=== PATIENT | female | born 1940 | race Caucasian/White ===

== ENCOUNTER 2018-11-23 22:03 | Emergency (ER) | payer MEDICARE ==
[2018-11-23] MEDS ORDERED: Acetaminophen 500 MG TAB ONE (22:40)
--- NOTE | 2018-11-23 23:06 | RAD ---
Exam:3 views left wrist HISTORY: Previous trauma. Previous internal fixation. COMPARISON: 07/18/2016 FINDINGS: Internal fixation hardware projects over the distal radius and ulna. There appears to be pe riarticular lucency involving the internal fixation plate at the level of the distal ulna. There is an incompletely healed distal ulnar fracture. Acute fracture is not appreciated. There is diffuse mil d bone demineralization. IMPRESSION: 1. No acute fracture. 2. 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 Perihardware lucency involving the internal fixation p late at the level of the distal ulna. Transcribed Date/Time: 11/23/2018 11:15 PM
--- NOTE | 2018-11-23 23:09 | RAD ---
Exam:4 views right knee HISTORY: Pain. Fall. COMPARISON: None FINDINGS: Joint spaces are preserved. No fracture. No malalignment. Small suprapatellar effusion. IMPRESSION: Small suprapatellar effusion. If there is concern for internal derangement, consider MRI. No fracture
--- NOTE | 2018-11-23 23:22 | CT ---
Exam: CT cervical spine without contrast HISTORY: Fall. Trauma. Pain. COMPARISON: None FINDINGS: No craniocervical dissociation. Appropriate alignment of the lateral masses of C1 and C2. Intact odon toid process Appropriate alignment of the facets. There is exaggeration of cervical lordosis which may be due to p atient position, muscle spasm, cervical collar or fusion changes at the C5-C6 disc space. There are bilateral transpedicular screws at C5 and C6 without perihardware lucency. There is a prosthesis at C 5-C6. Soft tissue neck structures: No mass, lymphadenopathy or hematoma. No prevertebral soft tissue swelli ng. Upper mediastinum and lung apices: Unremarkable Central spinal canal: Varying degrees of central canal stenosis and neural foraminal narrowing on the basis of degenerative change. Evaluation is limited by technique. There does appear to be at least [id number] neural foraminal narrowing at multiple levels. Vertebral bodies: Cervical spine vertebral body height is maintained. No fracture. IMPRESSION: 1. No fracture 2. Exaggeration of cervical lordosis which may be due to patient position, muscle spasm, cervical col lar or cervical fusion. Current study is not tailored to assess for ligamentous injury. Transcribed Date/Time: 11/23/2018 11:26 PM
--- NOTE | 2018-11-23 23:26 | CT ---
Exam: Head CT without contrast HISTORY: Fall. Trauma. Pain. COMPARISON: 07/17/2016 FINDINGS: Hemorrhage: No intraparenchymal hemorrhage or extra-axial hematoma. Brain parenchyma: Cortical reis-white matter differentiation is preserved. No mass effect or midline shift. Basilar cisterns are patent.Stable white matter hypodensities due to chronic small vessel ischemic change. Ventricular system: Ventricles and sulci are patent and symmetric. Calvarium: Intact. Sinuses and mastoid air cells: Evidence of previous sinonasal surgery. Adequate aeration of the sinus es and mastoid air cells. IMPRESSION: No intracranial post traumatic sequelae.
[2018-11-23 23:55] LABS: #Eosinphils 0.4 thou/uL (0.0-0.7); #Lymphocytes 1.6 thou/uL (1.20-3.40); #Monocytes 0.9 thou/uL (0.11-0.59); %Basophils 0.6 % (0.0-1.0); %Eosinophils 4.5 % (0.0-10.0); %Lymphocytes 20.1 % (21.0-51.0); %Monocytes 11.5 % (0.0-10.0); %Neutrophils 63.4 % (42.0-75.0); Hemoglobin 11.7 g/dL (12.0-16.0); Mean Corpuscular HGB CONC 33.8 g/dL (32.0-36.0); Mean Corpuscular Hemoglobin 32.1 pg (27.0-31.0); Mean Corpuscular Volume 95.1 fL (78.0-98.0); Mean Platelet Volume 7.2 fL (7.4-10.4); Platelet Count 188 thou/uL (130-400); Red Blood Cell (RBC) Count 3.63 mill/uL (4.20-5.40); White Blood Cell (WBC) Count 7.9 thou/uL (4.8-10.8)
[2018-11-24 00:18] LABS: ALT (SGPT) 19 U/L (8-55); AST (SGOT) 23 U/L (5-34); Albumin 3.8 g/dL (3.4-4.8); Alkaline Phosphatase 48 U/L (40-110); Anion Gap 12 mmol/L (10-20); BUN (Urea Nitrogen) 17 mg/dL (9.8-20.1); Bilirubin, Total 0.4 mg/dL (0.2-1.2); Calc. Creatinine Clearance 0 mL/min (70-130); Carbon Dioxide 23 mmol/L (23-31); Chloride 100 mmol/L (98-107); Estimated GFR-MDRD 68; Globulin 2.6 g/dL (2.4-3.5); Glucose 107 mg/dL (83-110); Potassium 4.3 mmol/L (3.5-5.1); Protein, Total 6.4 g/dL (6.0-8.3); Sodium 131 mmol/L (136-145)
== END 2018-11-24 00:45 | disposition home or self-care (01) ==
LOC: ERS 22:03
DX: S63.502A Unspecified sprain of left wrist, initial encounter (principal); S80.01XA Contusion of right knee, initial encounter; I10 Essential (primary) hypertension; Z79.899 Other long term (current) drug therapy; W01.0XXA Fall on same level from slipping, tripping and stumbling without subsequent striking against object, initial encounter
CPT/HCPCS: 36415; 70450; 72125; 80053; 84484; 85025

== ENCOUNTER 2019-11-10 09:36 | Outpatient (CLI) | payer MEDICARE, OTHER ==
--- NOTE | 2019-11-10 11:00 | MRI ---
MRI BRAIN WITH AND WITHOUT IV CONTRAST: HISTORY: Senile degeneration of the brain. Memory loss that has been progressively getting worse in t he last 6 months COMPARISON: None CORRELATION:CT brain dated 11/23/2018 FINDINGS: No restricted diffusion is seen. No evidence of infarct, hemorrhage, mass, midline shift or abnormal extra-axial fluid collections is noted. No abnormal postcontrast enhancement is seen. The ventricular size is appropriate and the basilar cisterns are patent. There are multiple foci of T2 prolongation in the periventricular white matter, consistent with chron ic small vessel ischemic disease. There are changes of cortical atrophy. The visualized paranasal sinuses and mastoid air cells are well aerated. IMPRESSION: No evidence of acute intracranial process or mass.
[2019-11-10] MEDS ORDERED: Magnevist 469MG/ML 20 ML VIAL ONE (14:35)
== END 2019-11-10 09:37 | disposition home or self-care (01) ==
LOC: BICMRI 09:36
PROVIDERS: ATTEND Psychiatry & Neurology Neurology
DX: G31.1 Senile degeneration of brain, not elsewhere classified (principal)
CPT/HCPCS: 70553; 82565; A9579

== ENCOUNTER 2020-06-12 19:00 | Outpatient (CLI) | payer MEDICARE | END 2020-06-12 19:01 | disposition home or self-care (01) | LOC: SLEEPLAB 19:00 | PROVIDERS: ATTEND Psychiatry & Neurology Neurology | DX: G47.33 Obstructive sleep apnea (adult) (pediatric) (principal); R06.83 Snoring; G47.00 Insomnia, unspecified; G47.10 Hypersomnia, unspecified; I48.91 Unspecified atrial fibrillation; I10 Essential (primary) hypertension; G62.9 Polyneuropathy, unspecified; G31.9 Degenerative disease of nervous system, unspecified; G47.31 Primary central sleep apnea | CPT/HCPCS: 95811 ==

== ENCOUNTER 2020-07-18 19:00 | Outpatient (CLI) | payer MEDICARE | END 2020-07-18 19:01 | disposition home or self-care (01) | LOC: SLEEPLAB 19:00 | PROVIDERS: ATTEND Psychiatry & Neurology Neurology | DX: G47.33 Obstructive sleep apnea (adult) (pediatric) (principal); R06.83 Snoring; G47.10 Hypersomnia, unspecified; E66.9 Obesity, unspecified; G47.31 Primary central sleep apnea; R09.02 Hypoxemia; Z68.29 Body mass index [BMI] 29.0-29.9, adult | CPT/HCPCS: 95811 ==

== ENCOUNTER 2020-12-06 09:34 | Inpatient (IN) | payer OTHER, MEDICARE ==
[2020-12-06] MEDS ORDERED: Ondansetron PF 4 MG/2 ML Vial ONE (10:08)
[2020-12-06] MEDS ORDERED: Morphine 4 MG/ML VIAL ONE (10:08)
[2020-12-06] MEDS ORDERED: Boostrix 0.5 ML (Tdap) VIAL ONE (10:08)
[2020-12-06 10:16] LABS: #Eosinphils 0.2 thou/uL (0.0-0.7); #Lymphocytes 1.7 thou/uL (1.20-3.40); #Monocytes 1.1 thou/uL (0.11-0.59); #Neutrophils 6.1 thou/uL (1.40-6.50); %Basophils 0.1 % (0.0-1.0); %Eosinophils 1.8 % (0.0-10.0); %Monocytes 12.1 % (0.0-10.0); %Neutrophils 66.9 % (42.0-75.0); Hemoglobin 12.2 g/dL (12.0-16.0); Mean Corpuscular HGB CONC 33.3 g/dL (32.0-36.0); Mean Corpuscular Hemoglobin 31.3 pg (27.0-31.0); Mean Corpuscular Volume 93.8 fL (78.0-98.0); Mean Platelet Volume 7.6 fL (7.4-10.4); Platelet Count 223 thou/uL (130-400); RBC Distribution Width 12.4 % (11.5-14.5); Red Blood Cell (RBC) Count 3.89 mill/uL (4.20-5.40); White Blood Cell (WBC) Count 9.1 thou/uL (4.8-10.8)
[2020-12-06 10:31] LABS: ALT (SGPT) 17 U/L (8-55); AST (SGOT) 24 U/L (5-34); Alkaline Phosphatase 60 U/L (40-110); Anion Gap 10 mmol/L (10-20); BUN (Urea Nitrogen) 29 mg/dL (9.8-20.1); Bilirubin, Total 0.6 mg/dL (0.2-1.2); Calc. Creatinine Clearance 0 mL/min (70-130); Calcium 8.9 mg/dL (7.8-10.44); Carbon Dioxide 27 mmol/L (23-31); Chloride 98 mmol/L (98-107); Globulin 3.5 g/dL (2.4-3.5); Glucose 120 mg/dL (83-110); Potassium 4.3 mmol/L (3.5-5.1); Protein, Total 7.5 g/dL (5.8-8.1); Sodium 131 mmol/L (136-145)
[2020-12-06] MEDS ORDERED: Fentanyl 100 MCG/2 ML VIAL ONE (10:59)
[2020-12-06 11:10] LABS: INR-International Normal Ratio 1.3
[2020-12-06] MEDS ORDERED: Methocarbamol 1 GM in Sodium Chloride 0.9% 100 ML IVPB SCH (11:45)
[2020-12-06] MEDS ORDERED: Ketorolac Tromethamine 30 MG/ML VIAL ONE ×2 (11:50→13:42)
[2020-12-06] MEDS ORDERED: Tranexamic Acid 1,000 MG in Sodium Chloride 0.9% 250 ML 250 ML IVPB SCH (12:30)
[2020-12-06] MEDS ORDERED: Clindamycin/D5W 900 MG in Premix Bag 1 BAG IVPB SCH (12:30)
[2020-12-06] MEDS ORDERED: Ondansetron PF 4 MG/2 ML Vial IVP PRN (12:37)
[2020-12-06] MEDS ORDERED: Dextrose 5% in Water 1,000 ML IV PRN (12:37)
[2020-12-06] MEDS ORDERED: Dextrose 50% Abboject 50 ML SYRINGE SLOW IVP PRN (12:37)
[2020-12-06] MEDS ORDERED: Ondansetron ODT 4 MG TAB PO PRN (12:37)
[2020-12-06] MEDS ORDERED: Morphine 2 MG/ML VIAL SLOW IVP PRN (12:37)
[2020-12-06] MEDS ORDERED: hydrALAZINE 20 MG/ML VIAL SLOW IVP PRN (12:37)
[2020-12-06] MEDS ORDERED: Sodium Chloride 0.9% 1,000 ML IV SCH (12:45)
[2020-12-06] MEDS ORDERED: Cyclobenzaprine 10 MG TAB PO PRN (12:46)
[2020-12-06] MEDS ORDERED: traMADol HCl 50 MG TAB PO PRN (12:46)
[2020-12-06 13:08] LABS: Magnesium 2.2 mg/dL (1.6-2.6); Phosphorus 3.7 mg/dL (2.3-4.7)
[2020-12-06 13:41] LABS: SARS-CoV-2 NAA Rapid Test Not Detected (NotDetected)
[2020-12-06] MEDS: Acetaminophen 500 MG TAB PO SCH ×2 (13:59→18:08)
[2020-12-06] MEDS: Morphine 4 MG/ML VIAL SLOW IVP PRN ×2 (14:52→21:13)
[2020-12-06] MEDS: Gabapentin 300 MG CAP PO SCH ×2 (14:54→21:09)
[2020-12-06 16:41] VITALS: BMI 31.8
[2020-12-06 17:22] LABS: Bacteria/HPF 2+ HPF (None Seen); Bilirubin Negative (Negative); Blood, Urine Negative (Negative); Clarity Clear (Clear); Glucose, Urine (Dipstick) Normal (Negative); Ketone, Urine Negative (Negative); Leukocyte 250 Leu/uL (Negative); Nitrite 2+ (Negative); Protein, Urine (Dipstick) Negative (Neg-Trace); RBC/HPF 0-3 HPF (0-3); Squamous Epithelial 0-3 HPF (0-3); Urobilinogen Normal mg/dL (Less than 2); pH, Urine 5.5 (5.0-9.0)
[2020-12-06] MEDS: Ketorolac Tromethamine 30 MG/ML VIAL IVP SCH ×2 (18:07→23:03)
[2020-12-06] MEDS: traMADol HCl 50 MG TAB PO SCH ×2 (18:08→23:04)
[2020-12-06] MEDS ORDERED: CEVIMELINE HCL 30 MG PO SCH (21:00)
[2020-12-06] MEDS: Senokot S 8.6-50 MG TAB PO SCH (21:09)
[2020-12-06] MEDS: Famotidine 20 MG TAB PO SCH (21:10)
[2020-12-06] MEDS: Donepezil HCl 5 MG TAB PO SCH ×2 (21:11→21:12)
[2020-12-06] MEDS: Metoprolol Tartrate 25 MG TAB PO SCH (21:12)
[2020-12-06] MEDS: cycloSPORINE 0.05% Ophthalmic Droperette EA EYE SCH (21:16)
[2020-12-07] MEDS: Acetaminophen 500 MG TAB PO SCH ×4 (01:42→19:29)
[2020-12-07] MEDS: traMADol HCl 50 MG TAB PO SCH ×3 (05:34→19:29)
[2020-12-07] MEDS: Ketorolac Tromethamine 30 MG/ML VIAL IVP SCH ×3 (05:35→19:29)
[2020-12-07 06:18] LABS: Anion Gap 14 mmol/L (10-20); BUN (Urea Nitrogen) 27 mg/dL (9.8-20.1); Calc. Creatinine Clearance 61 mL/min (70-130); Carbon Dioxide 18 mmol/L (23-31); Chloride 101 mmol/L (98-107); Glucose 103 mg/dL (83-110); Magnesium 2.1 mg/dL (1.6-2.6); Sodium 128 mmol/L (136-145)
[2020-12-07 06:23] LABS: Band 2 % (5-11); Eosinophils 2 % (0-10); Hemoglobin 10.3 g/dL (12.0-16.0); Lymphocytes 10 % (21-51); MDiff Complete? YES; Mean Corpuscular Hemoglobin 31.8 pg (27.0-31.0); Mean Corpuscular Volume 96.5 fL (78.0-98.0); Mean Platelet Volume 7.2 fL (7.4-10.4); Monocytes 11 % (0-10); Neutrophil 74 % (42-75); Platelet Count 142 thou/uL (130-400); RBC Distribution Width 12.5 % (11.5-14.5); Red Blood Cell (RBC) Count 3.24 mill/uL (4.20-5.40); White Blood Cell (WBC) Count 8.2 thou/uL (4.8-10.8)
[2020-12-07 07:21] LABS: Phosphorus 4.5 mg/dL (2.3-4.7)
[2020-12-07] MEDS: Metoprolol Tartrate 25 MG TAB PO SCH ×2 (08:04→22:36)
[2020-12-07] MEDS: Famotidine 20 MG TAB PO SCH ×2 (08:47→22:35)
[2020-12-07] MEDS: Gabapentin 300 MG CAP PO SCH ×3 (08:50→22:35)
[2020-12-07] MEDS: Polyethylene Glycol 3350 17 GM Packet PO SCH (08:54)
[2020-12-07] MEDS: cycloSPORINE 0.05% Ophthalmic Droperette EA EYE SCH ×2 (08:55→22:36)
[2020-12-07] MEDS: Senokot S 8.6-50 MG TAB PO SCH ×2 (08:56→22:36)
[2020-12-07] MEDS ORDERED: Clindamycin/D5W 900 mg/50 ml Premix Bag ONE (11:54)
[2020-12-07] MEDS ORDERED: Fentanyl 100 MCG/2 ML VIAL ONE ×2 (12:13→14:14)
[2020-12-07] MEDS ORDERED: PROPOFOL 200 MG/20 ML VIAL ONE (12:26)
[2020-12-07] MEDS ORDERED: Metoclopramide HCl 10 MG/2 ML VIAL ONE (12:26)
[2020-12-07] MEDS ORDERED: Ondansetron PF 4 MG/2 ML Vial ONE (12:26)
[2020-12-07] MEDS ORDERED: ePHEDrine 50 MG/ML VIAL ONE (12:26)
[2020-12-07] MEDS ORDERED: Rocuronium Bromide 10 MG/ML (10ML VIAL) ONE (12:26)
[2020-12-07] MEDS ORDERED: Glycopyrrolate 0.2 MG/ML 5 ML SYRINGE ONE (12:26)
[2020-12-07] MEDS ORDERED: Ketorolac Tromethamine 30 MG/ML VIAL ONE (12:26)
[2020-12-07] MEDS ORDERED: Lidocaine 1% PF 5 ML VIAL ONE (12:26)
[2020-12-07] MEDS ORDERED: Dexamethasone 20 MG/5 ML VIAL ONE (12:26)
[2020-12-07] MEDS ORDERED: SUGAMMADEX SODIUM 200 MG/2 ML VIAL ONE (13:47)
[2020-12-07] MEDS ORDERED: Promethazine HCl 25 MG/ML VIAL IVPB PRN (14:14)
[2020-12-07] MEDS ORDERED: Promethazine HCl 25 MG/ML VIAL IM PRN (14:14)
[2020-12-07] MEDS ORDERED: Ondansetron HCl/PF 4 MG/2 ML Vial IVP PRN (14:14)
[2020-12-07] MEDS: Clindamycin/D5W 900 MG in Premix Bag 1 BAG IVPB SCH ×2 (15:12→22:20)
[2020-12-07] MEDS ORDERED: FLU VACC QS2021-22(65YR UP)/PF 240 MCG/0.7 ML SYRINGE IM ONE (17:15)
[2020-12-08] MEDS: Ketorolac Tromethamine 30 MG/ML VIAL IVP SCH ×4 (00:45→18:43)
[2020-12-08] MEDS: traMADol HCl 50 MG TAB PO SCH ×4 (00:46→18:44)
[2020-12-08] MEDS: Acetaminophen 500 MG TAB PO SCH ×5 (03:09→20:27)
[2020-12-08 07:00] LABS: Anion Gap 15 mmol/L (10-20); BUN (Urea Nitrogen) 30 mg/dL (9.8-20.1); Calc. Creatinine Clearance 49 mL/min (70-130); Calcium 7.8 mg/dL (7.8-10.44); Carbon Dioxide 19 mmol/L (23-31); Chloride 100 mmol/L (98-107); Glucose 135 mg/dL (83-110); Magnesium 2.1 mg/dL (1.6-2.6); Phosphorus 4.4 mg/dL (2.3-4.7); Potassium 5.3 mmol/L (3.5-5.1); Sodium 129 mmol/L (136-145)
[2020-12-08 07:02] LABS: #Eosinphils 0.1 thou/uL (0.0-0.7); #Lymphocytes 1.5 thou/uL (1.20-3.40); #Monocytes 2.2 thou/uL (0.11-0.59); #Neutrophils 13.1 thou/uL (1.40-6.50); %Basophils 0.2 % (0.0-1.0); %Eosinophils 0.8 % (0.0-10.0); %Lymphocytes 9.1 % (21.0-51.0); %Monocytes 12.9 % (0.0-10.0); Hemoglobin 8.9 g/dL (12.0-16.0); Mean Corpuscular Hemoglobin 30.8 pg (27.0-31.0); Mean Corpuscular Volume 96.4 fL (78.0-98.0); Platelet Count 141 thou/uL (130-400); RBC Distribution Width 12.7 % (11.5-14.5); Red Blood Cell (RBC) Count 2.88 mill/uL (4.20-5.40)
[2020-12-08] MEDS: Metoprolol Tartrate 25 MG TAB PO SCH ×2 (07:45→21:18)
[2020-12-08] MEDS: Gabapentin 300 MG CAP PO SCH (09:01)
[2020-12-08] MEDS: Famotidine 20 MG TAB PO SCH ×2 (09:01→21:18)
[2020-12-08] MEDS: Polyethylene Glycol 3350 17 GM Packet PO SCH (09:02)
[2020-12-08] MEDS: Senokot S 8.6-50 MG TAB PO SCH ×2 (09:02→21:18)
[2020-12-08] MEDS: cycloSPORINE 0.05% Ophthalmic Droperette EA EYE SCH ×2 (11:17→22:22)
[2020-12-08] MEDS ORDERED: Furosemide 20 MG/2 ML VIAL SLOW IVP SCH (14:45)
[2020-12-08] MEDS: Gabapentin 100 MG CAP PO SCH ×3 (15:30→20:27)
[2020-12-08] MEDS ORDERED: Hydrocortisone Sod Succ/PF 100 mg/2 ml Vial IVP SCH (18:15)
[2020-12-08] MEDS: Donepezil HCl 5 MG TAB PO SCH (21:18)
[2020-12-09] MEDS: Gabapentin 100 MG CAP PO SCH ×2 (00:30→11:31)
[2020-12-09] MEDS: traMADol HCl 50 MG TAB PO SCH ×5 (00:31→23:27)
[2020-12-09] MEDS: Ketorolac Tromethamine 30 MG/ML VIAL IVP SCH (00:31)
[2020-12-09] MEDS: Hydrocortisone Sod Succ/PF 100 mg/2 ml Vial IVP SCH ×4 (00:50→18:17)
[2020-12-09] MEDS: Acetaminophen 500 MG TAB PO SCH ×4 (00:59→17:52)
[2020-12-09 05:11] LABS: #Basophils 0.2 thou/uL (0.0-0.2); #Eosinphils 0.1 thou/uL (0.0-0.7); #Lymphocytes 1.1 thou/uL (1.20-3.40); #Monocytes 1.4 thou/uL (0.11-0.59); #Neutrophils 13.2 thou/uL (1.40-6.50); %Eosinophils 0.3 % (0.0-10.0); %Lymphocytes 7.1 % (21.0-51.0); %Monocytes 8.5 % (0.0-10.0); Hemoglobin 6.7 g/dL (12.0-16.0); Mean Corpuscular HGB CONC 33.5 g/dL (32.0-36.0); Mean Corpuscular Hemoglobin 31.3 pg (27.0-31.0); Mean Corpuscular Volume 93.6 fL (78.0-98.0); Mean Platelet Volume 7.8 fL (7.4-10.4); Platelet Count 149 thou/uL (130-400); RBC Distribution Width 12.8 % (11.5-14.5); Red Blood Cell (RBC) Count 2.12 mill/uL (4.20-5.40); White Blood Cell (WBC) Count 15.9 thou/uL (4.8-10.8)
[2020-12-09 05:20] LABS: INR-International Normal Ratio 1.2; PTT 33.7 sec (22.9-36.1); Prothrombin Time 15.8 sec (12.0-14.7)
[2020-12-09 05:31] LABS: Anion Gap 14 mmol/L (10-20); BUN (Urea Nitrogen) 41 mg/dL (9.8-20.1); Calc. Creatinine Clearance 40 mL/min (70-130); Calcium 7.8 mg/dL (7.8-10.44); Carbon Dioxide 20 mmol/L (23-31); Chloride 103 mmol/L (98-107); Glucose 141 mg/dL (83-110); Potassium 5.1 mmol/L (3.5-5.1); Sodium 132 mmol/L (136-145)
[2020-12-09] MEDS: Amlodipine 5 MG TAB PO SCH (09:57)
[2020-12-09] MEDS: Furosemide 40 MG TAB PO SCH (09:58)
[2020-12-09] MEDS: Metoprolol Tartrate 25 MG TAB PO SCH ×2 (09:58→20:58)
[2020-12-09] MEDS: Senokot S 8.6-50 MG TAB PO SCH ×2 (11:30→21:06)
[2020-12-09] MEDS: Potassium Chloride 10 MEQ TAB PO SCH (11:30)
[2020-12-09] MEDS: Famotidine 20 MG TAB PO SCH ×2 (11:30→21:05)
[2020-12-09] MEDS: Polyethylene Glycol 3350 17 GM Packet PO SCH (11:30)
[2020-12-09 11:48] LABS: Hemoglobin 7.4 g/dL (12.0-16.0)
[2020-12-09 12:05] LABS: Anion Gap 13 mmol/L (10-20); BUN (Urea Nitrogen) 39 mg/dL (9.8-20.1); Calc. Creatinine Clearance 45 mL/min (70-130); Calcium 7.7 mg/dL (7.8-10.44); Carbon Dioxide 20 mmol/L (23-31); Chloride 105 mmol/L (98-107); Glucose 133 mg/dL (83-110); Magnesium 2.3 mg/dL (1.6-2.6); Phosphorus 3.5 mg/dL (2.3-4.7); Potassium 4.9 mmol/L (3.5-5.1); Sodium 133 mmol/L (136-145)
[2020-12-09] MEDS: cycloSPORINE 0.05% Ophthalmic Droperette EA EYE SCH ×2 (12:17→21:06)
[2020-12-09] MEDS: Lisinopril 20 MG TAB PO SCH (13:56)
[2020-12-09] MEDS: Donepezil HCl 5 MG TAB PO SCH (21:05)
[2020-12-10 01:24] LABS: Hemoglobin 8.3 g/dL (12.0-16.0); Mean Corpuscular HGB CONC 35.1 g/dL (32.0-36.0); Mean Corpuscular Volume 91.3 fL (78.0-98.0); Mean Platelet Volume 8.3 fL (7.4-10.4); Platelet Count 131 thou/uL (130-400); RBC Distribution Width 14.6 % (11.5-14.5); White Blood Cell (WBC) Count 15.8 thou/uL (4.8-10.8)
[2020-12-10 01:38] LABS: Phosphorus 2.9 mg/dL (2.3-4.7)
[2020-12-10 01:39] LABS: Anion Gap 15 mmol/L (10-20); BUN (Urea Nitrogen) 31 mg/dL (9.8-20.1); Calc. Creatinine Clearance 66 mL/min (70-130); Carbon Dioxide 20 mmol/L (23-31); Chloride 104 mmol/L (98-107); Glucose 126 mg/dL (83-110); Magnesium 2.3 mg/dL (1.6-2.6); Potassium 4.3 mmol/L (3.5-5.1); Sodium 135 mmol/L (136-145)
[2020-12-10] MEDS: Hydrocortisone Sod Succ/PF 100 mg/2 ml Vial IVP SCH ×4 (01:41→17:00)
[2020-12-10] MEDS: Acetaminophen 500 MG TAB PO SCH ×4 (01:42→18:41)
[2020-12-10 01:47] LABS: Anisocytosis SLIGHT = 6-15 cells (100X) (0-5/hpf); Band 6 % (5-11); Eosinophils 1 % (0-10); Lymphocytes 5 % (21-51); MDiff Complete? YES; Monocytes 5 % (0-10); Neutrophil 83 % (42-75)
[2020-12-10] MEDS ORDERED: Sodium Phosphate 30 MMOL in Sodium Chloride 0.9% 250 ML 250 ML IVPB SCH (03:00)
[2020-12-10] MEDS: traMADol HCl 50 MG TAB PO SCH (05:05)
[2020-12-10] MEDS: Famotidine 20 MG TAB PO SCH ×2 (08:13→21:37)
[2020-12-10] MEDS: Lisinopril 20 MG TAB PO SCH (08:13)
[2020-12-10] MEDS: Potassium Chloride 10 MEQ TAB PO SCH (08:13)
[2020-12-10] MEDS: Senokot S 8.6-50 MG TAB PO SCH ×2 (08:13→21:38)
[2020-12-10] MEDS: Furosemide 40 MG TAB PO SCH (08:13)
[2020-12-10] MEDS: Polyethylene Glycol 3350 17 GM Packet PO SCH (08:13)
[2020-12-10] MEDS: Metoprolol Tartrate 25 MG TAB PO SCH ×2 (08:14→21:30)
[2020-12-10] MEDS: Amlodipine 5 MG TAB PO SCH (08:14)
[2020-12-10] MEDS: Ascorbic Acid 500 mg Chewable Tablet PO SCH ×2 (09:48→21:37)
[2020-12-10 10:20] LABS: Magnesium 2.3 mg/dL (1.6-2.6)
[2020-12-10] MEDS: cycloSPORINE 0.05% Ophthalmic Droperette EA EYE SCH (12:18)
[2020-12-10] MEDS: Ferrous Sulfate 325 MG TAB PO SCH (17:00)
[2020-12-10] MEDS: Donepezil HCl 5 MG TAB PO SCH (21:30)
[2020-12-10] MEDS: Nitrofurantoin Monohyd/M-Cryst 100 MG CAP PO SCH (21:38)
[2020-12-11] MEDS: Hydrocortisone Sod Succ/PF 100 mg/2 ml Vial IVP SCH ×2 (00:24→05:28)
[2020-12-11] MEDS: Acetaminophen 500 MG TAB PO SCH ×5 (03:38→18:36)
[2020-12-11] MEDS: cycloSPORINE 0.05% Ophthalmic Droperette EA EYE SCH ×3 (03:38→23:42)
[2020-12-11 05:19] LABS: #Basophils 0.1 thou/uL (0.0-0.2); #Eosinphils 0.2 thou/uL (0.0-0.7); #Lymphocytes 1.3 thou/uL (1.20-3.40); #Monocytes 1.5 thou/uL (0.11-0.59); #Neutrophils 9.8 thou/uL (1.40-6.50); %Basophils 0.5 % (0.0-1.0); %Eosinophils 1.4 % (0.0-10.0); %Lymphocytes 10.3 % (21.0-51.0); %Monocytes 11.4 % (0.0-10.0); %Neutrophils 76.4 % (42.0-75.0); Hemoglobin 9.7 g/dL (12.0-16.0); Mean Corpuscular HGB CONC 31.1 g/dL (32.0-36.0); Mean Corpuscular Hemoglobin 29.2 pg (27.0-31.0); Mean Platelet Volume 8.4 fL (7.4-10.4); Platelet Count 167 thou/uL (130-400); RBC Distribution Width 15.1 % (11.5-14.5); Red Blood Cell (RBC) Count 3.33 mill/uL (4.20-5.40); White Blood Cell (WBC) Count 12.8 thou/uL (4.8-10.8)
[2020-12-11 05:40] LABS: Anion Gap 18 mmol/L (10-20); BUN (Urea Nitrogen) 23 mg/dL (9.8-20.1); Calc. Creatinine Clearance 77 mL/min (70-130); Calcium 8.4 mg/dL (7.8-10.44); Carbon Dioxide 17 mmol/L (23-31); Chloride 108 mmol/L (98-107); Glucose 113 mg/dL (83-110); Magnesium 2.2 mg/dL (1.6-2.6); Phosphorus 2.7 mg/dL (2.3-4.7); Potassium 3.7 mmol/L (3.5-5.1); Sodium 139 mmol/L (136-145)
[2020-12-11] MEDS: Ferrous Sulfate 325 MG TAB PO SCH (08:41)
[2020-12-11] MEDS: Metoprolol Tartrate 25 MG TAB PO SCH ×4 (08:42→23:38)
[2020-12-11] MEDS: Furosemide 40 MG TAB PO SCH ×3 (08:42→13:24)
[2020-12-11] MEDS: Ascorbic Acid 500 mg Chewable Tablet PO SCH (08:42)
[2020-12-11] MEDS: Nitrofurantoin Monohyd/M-Cryst 100 MG CAP PO SCH ×3 (08:42→23:47)
[2020-12-11] MEDS: Famotidine 20 MG TAB PO SCH (08:42)
[2020-12-11] MEDS: Lisinopril 20 MG TAB PO SCH (08:42)
[2020-12-11] MEDS: Polyethylene Glycol 3350 17 GM Packet PO SCH ×3 (08:43→13:24)
[2020-12-11] MEDS: Senokot S 8.6-50 MG TAB PO SCH ×5 (08:43→23:49)
[2020-12-11] MEDS: Potassium Chloride 10 MEQ TAB PO SCH (08:43)
[2020-12-11] MEDS: Metoprolol Tartrate 5 MG/5 ML VIAL IVP SCH ×2 (09:18→10:23)
[2020-12-11] MEDS ORDERED: Potassium Phosphate 30 MMOL in Sodium Chloride 0.9% 250 ML 250 ML IVPB SCH (10:15)
[2020-12-11] MEDS ORDERED: Digoxin 0.5 MG/2 ML AMP SLOW IVP SCH ×3 (11:14→18:00)
[2020-12-11 12:11] LABS: Troponin I Less than 0.010 ng/mL (< 0.028)
[2020-12-11] MEDS: Apixaban 5 MG TAB PO SCH ×3 (13:12→23:37)
[2020-12-11] MEDS ORDERED: Digoxin 0.5 MG/2 ML AMP SLOW IVP STA (16:24)
[2020-12-11] MEDS ORDERED: Amiodarone 150 MG, Admixture Fee 1 EACH in Dextrose 5% in Water 100 ML IVPB SCH (18:00)
[2020-12-11] MEDS: Amiodarone 450 MG, Admixture Fee 1 EACH in Dextrose 5% in Water 250 ML IVPB SCH (18:37)
[2020-12-11] MEDS ORDERED: Furosemide 20 MG/2 ML VIAL SLOW IVP SCH (21:30)
[2020-12-11 22:10] LABS: Magnesium 2.2 mg/dL (1.6-2.6)
[2020-12-12] MEDS: Acetaminophen 500 MG TAB PO SCH ×4 (00:57→22:08)
[2020-12-12 05:14] LABS: #Basophils 0.1 thou/uL (0.0-0.2); #Eosinphils 0.2 thou/uL (0.0-0.7); #Lymphocytes 1.5 thou/uL (1.20-3.40); #Monocytes 1.6 thou/uL (0.11-0.59); #Neutrophils 9.4 thou/uL (1.40-6.50); %Basophils 0.6 % (0.0-1.0); %Lymphocytes 11.8 % (21.0-51.0); %Monocytes 12.6 % (0.0-10.0); %Neutrophils 73.1 % (42.0-75.0); Hemoglobin 9.2 g/dL (12.0-16.0); Mean Corpuscular HGB CONC 32.5 g/dL (32.0-36.0); Mean Corpuscular Hemoglobin 30.4 pg (27.0-31.0); Mean Corpuscular Volume 93.5 fL (78.0-98.0); Mean Platelet Volume 7.4 fL (7.4-10.4); Platelet Count 272 thou/uL (130-400); RBC Distribution Width 14.8 % (11.5-14.5); Red Blood Cell (RBC) Count 3.03 mill/uL (4.20-5.40); White Blood Cell (WBC) Count 12.8 thou/uL (4.8-10.8)
[2020-12-12 05:22] LABS: Anion Gap 18 mmol/L (10-20); BUN (Urea Nitrogen) 29 mg/dL (9.8-20.1); Calc. Creatinine Clearance 73 mL/min (70-130); Calcium 8.2 mg/dL (7.8-10.44); Carbon Dioxide 20 mmol/L (23-31); Chloride 105 mmol/L (98-107); Glucose 123 mg/dL (83-110); Phosphorus 3.1 mg/dL (2.3-4.7); Potassium 3.7 mmol/L (3.5-5.1); Sodium 139 mmol/L (136-145)
[2020-12-12 08:21] LABS: Digoxin 0.63 ng/mL (0.8-2.0)
[2020-12-12 08:22] LABS: Magnesium 2.2 mg/dL (1.6-2.6)
[2020-12-12] MEDS: Furosemide 40 MG TAB PO SCH (08:59)
[2020-12-12] MEDS: Nitrofurantoin Monohyd/M-Cryst 100 MG CAP PO SCH ×2 (08:59→21:55)
[2020-12-12] MEDS: Metoprolol Tartrate 25 MG TAB PO SCH ×2 (08:59→21:47)
[2020-12-12] MEDS: Apixaban 5 MG TAB PO SCH ×2 (08:59→21:48)
[2020-12-12] MEDS: Polyethylene Glycol 3350 17 GM Packet PO SCH (08:59)
[2020-12-12] MEDS: Potassium Chloride 10 MEQ TAB PO SCH (08:59)
[2020-12-12] MEDS ORDERED: Famotidine/PF 20 mg/2ml Vial SLOW IVP SCH (09:00)
[2020-12-12] MEDS: Senokot S 8.6-50 MG TAB PO SCH ×2 (09:00→21:52)
[2020-12-12] MEDS ORDERED: Metolazone 2.5 MG TAB PO SCH (09:10)
[2020-12-12] MEDS ORDERED: Furosemide 40 MG/4 ML VIAL SLOW IVP SCH ×2 (09:11→18:00)
[2020-12-12] MEDS: cycloSPORINE 0.05% Ophthalmic Droperette EA EYE SCH ×2 (10:35→21:48)
[2020-12-12] MEDS ORDERED: Potassium Chloride 10 MEQ in Premix Bag 1 BAG IVPB SCH ×2 (16:15→18:00)
[2020-12-12 17:33] LABS: Anion Gap 14 mmol/L (10-20); BUN (Urea Nitrogen) 28 mg/dL (9.8-20.1); Calc. Creatinine Clearance 69 mL/min (70-130); Calcium 8.6 mg/dL (7.8-10.44); Carbon Dioxide 26 mmol/L (23-31); Chloride 101 mmol/L (98-107); Glucose 121 mg/dL (83-110); Phosphorus 2.7 mg/dL (2.3-4.7); Potassium 3.6 mmol/L (3.5-5.1); Sodium 137 mmol/L (136-145)
[2020-12-12] MEDS ORDERED: Metolazone 5 MG TAB PO SCH (18:00)
[2020-12-12] MEDS ORDERED: Potassium Chloride 20 MEQ TAB PO SCH (18:30)
[2020-12-12] MEDS ORDERED: Amlodipine 5 MG TAB PO SCH (18:30)
[2020-12-12] MEDS ORDERED: POTASSIUM PHOSPHATE IVPB SCH (19:00)
[2020-12-12] MEDS ORDERED: SODIUM CHLORIDE 0.9% IVPB SCH (19:00)
[2020-12-12] MEDS: PHOS-NAK 1 PKT PACK PO SCH (21:55)
[2020-12-13] MEDS: Acetaminophen 500 MG TAB PO SCH ×4 (02:04→18:34)
[2020-12-13 05:15] LABS: Anion Gap 15 mmol/L (10-20); BUN (Urea Nitrogen) 30 mg/dL (9.8-20.1); Calc. Creatinine Clearance 70 mL/min (70-130); Calcium 8.2 mg/dL (7.8-10.44); Carbon Dioxide 22 mmol/L (23-31); Chloride 101 mmol/L (98-107); Glucose 130 mg/dL (83-110); Phosphorus 2.9 mg/dL (2.3-4.7); Potassium 3.9 mmol/L (3.5-5.1); Sodium 134 mmol/L (136-145)
[2020-12-13] MEDS ORDERED: Lisinopril 20 MG TAB PO SCH (09:00)
[2020-12-13] MEDS: Apixaban 5 MG TAB PO SCH ×2 (09:18→21:25)
[2020-12-13] MEDS: Polyethylene Glycol 3350 17 GM Packet PO SCH (09:18)
[2020-12-13] MEDS: Potassium Chloride 10 MEQ TAB PO SCH (09:18)
[2020-12-13] MEDS: Furosemide 40 MG TAB PO SCH (09:18)
[2020-12-13] MEDS: Nitrofurantoin Monohyd/M-Cryst 100 MG CAP PO SCH ×2 (09:18→21:25)
[2020-12-13] MEDS: Amlodipine 5 MG TAB PO SCH (09:18)
[2020-12-13] MEDS: Senokot S 8.6-50 MG TAB PO SCH ×2 (09:18→21:28)
[2020-12-13] MEDS: Metoprolol Tartrate 25 MG TAB PO SCH ×2 (09:19→21:26)
[2020-12-13] MEDS: PHOS-NAK 1 PKT PACK PO SCH ×2 (09:19→21:27)
[2020-12-13] MEDS: cycloSPORINE 0.05% Ophthalmic Droperette EA EYE SCH ×2 (09:22→21:57)
[2020-12-13] MEDS: Amiodarone 450 MG, Admixture Fee 1 EACH in Dextrose 5% in Water 250 ML IVPB SCH (10:20)
[2020-12-13] MEDS ORDERED: Digoxin 0.5 MG/2 ML AMP SLOW IVP SCH (18:30)
[2020-12-14] MEDS: Acetaminophen 500 MG TAB PO SCH ×4 (01:01→18:42)
[2020-12-14] MEDS: Digoxin 0.5 MG/2 ML AMP SLOW IVP SCH ×2 (01:01→05:58)
[2020-12-14 01:06] LABS: SARS-CoV-2 PCR by NAA Not Detected (NotDetected)
[2020-12-14] MEDS: Amiodarone 450 MG, Admixture Fee 1 EACH in Dextrose 5% in Water 250 ML IVPB SCH (03:59)
[2020-12-14 05:18] LABS: #Basophils 0.2 thou/uL (0.0-0.2); #Eosinphils 0.7 thou/uL (0.0-0.7); #Lymphocytes 1.6 thou/uL (1.20-3.40); #Monocytes 1.9 thou/uL (0.11-0.59); #Neutrophils 13.4 thou/uL (1.40-6.50); %Basophils 0.9 % (0.0-1.0); %Eosinophils 3.9 % (0.0-10.0); %Lymphocytes 8.8 % (21.0-51.0); %Monocytes 10.9 % (0.0-10.0); %Neutrophils 75.5 % (42.0-75.0); Hemoglobin 9.9 g/dL (12.0-16.0); Mean Corpuscular HGB CONC 33.1 g/dL (32.0-36.0); Mean Corpuscular Hemoglobin 31.4 pg (27.0-31.0); Mean Corpuscular Volume 94.6 fL (78.0-98.0); Mean Platelet Volume 7.1 fL (7.4-10.4); Platelet Count 310 thou/uL (130-400); RBC Distribution Width 14.3 % (11.5-14.5); Red Blood Cell (RBC) Count 3.14 mill/uL (4.20-5.40); White Blood Cell (WBC) Count 17.7 thou/uL (4.8-10.8)
[2020-12-14 05:44] LABS: Anion Gap 15 mmol/L (10-20); BUN (Urea Nitrogen) 37 mg/dL (9.8-20.1); Calc. Creatinine Clearance 66 mL/min (70-130); Calcium 8.2 mg/dL (7.8-10.44); Carbon Dioxide 22 mmol/L (23-31); Chloride 97 mmol/L (98-107); Glucose 112 mg/dL (83-110); Phosphorus 3.6 mg/dL (2.3-4.7); Potassium 3.9 mmol/L (3.5-5.1); Sodium 130 mmol/L (136-145)
[2020-12-14] MEDS: Polyethylene Glycol 3350 17 GM Packet PO SCH (09:45)
[2020-12-14] MEDS: Senokot S 8.6-50 MG TAB PO SCH ×3 (09:46→20:13)
[2020-12-14] MEDS: Digoxin 0.125 MG TAB PO SCH (09:47)
[2020-12-14] MEDS: cycloSPORINE 0.05% Ophthalmic Droperette EA EYE SCH ×2 (09:48→20:12)
[2020-12-14] MEDS: Lisinopril 10 MG TAB PO SCH (09:49)
[2020-12-14] MEDS: Furosemide 40 MG TAB PO SCH (09:49)
[2020-12-14] MEDS: Metoprolol Tartrate 25 MG TAB PO SCH ×2 (09:49→20:10)
[2020-12-14] MEDS: Amlodipine 5 MG TAB PO SCH (09:49)
[2020-12-14] MEDS: PHOS-NAK 1 PKT PACK PO SCH ×2 (09:49→20:11)
[2020-12-14] MEDS: Nitrofurantoin Monohyd/M-Cryst 100 MG CAP PO SCH ×2 (09:49→20:09)
[2020-12-14] MEDS: Apixaban 5 MG TAB PO SCH ×2 (09:50→20:09)
[2020-12-14] MEDS: Potassium Chloride 10 MEQ TAB PO SCH (09:50)
[2020-12-14] MEDS ORDERED: Amiodarone 200 MG TAB PO SCH ×2 (16:00→21:00)
[2020-12-14] MEDS: Amiodarone 200 MG TAB PO SCH (20:10)
[2020-12-14] MEDS: Melatonin 3 MG TAB PO PRN (20:10)
[2020-12-15] MEDS: Acetaminophen 500 MG TAB PO SCH ×4 (02:08→21:39)
[2020-12-15 04:57] LABS: #Basophils 0.2 thou/uL (0.0-0.2); #Eosinphils 0.4 thou/uL (0.0-0.7); #Lymphocytes 1.2 thou/uL (1.20-3.40); #Monocytes 1.4 thou/uL (0.11-0.59); #Neutrophils 14.3 thou/uL (1.40-6.50); %Eosinophils 2.1 % (0.0-10.0); %Monocytes 8.2 % (0.0-10.0); %Neutrophils 81.7 % (42.0-75.0); Hemoglobin 9.2 g/dL (12.0-16.0); Mean Corpuscular HGB CONC 33.8 g/dL (32.0-36.0); Mean Corpuscular Volume 94.7 fL (78.0-98.0); Mean Platelet Volume 7.2 fL (7.4-10.4); Platelet Count 348 thou/uL (130-400); RBC Distribution Width 14.3 % (11.5-14.5); Red Blood Cell (RBC) Count 2.86 mill/uL (4.20-5.40); White Blood Cell (WBC) Count 17.4 thou/uL (4.8-10.8)
[2020-12-15 05:13] LABS: Anion Gap 16 mmol/L (10-20); BUN (Urea Nitrogen) 41 mg/dL (9.8-20.1); Calc. Creatinine Clearance 64 mL/min (70-130); Calcium 8.1 mg/dL (7.8-10.44); Carbon Dioxide 22 mmol/L (23-31); Chloride 97 mmol/L (98-107); Glucose 118 mg/dL (83-110); Phosphorus 3.7 mg/dL (2.3-4.7); Potassium 4.2 mmol/L (3.5-5.1); Sodium 131 mmol/L (136-145)
[2020-12-15] MEDS: Metoprolol Tartrate 25 MG TAB PO SCH ×2 (09:43→21:39)
[2020-12-15] MEDS: Digoxin 0.125 MG TAB PO SCH (09:43)
[2020-12-15] MEDS: Amlodipine 5 MG TAB PO SCH (09:44)
[2020-12-15] MEDS: Potassium Chloride 10 MEQ TAB PO SCH (09:44)
[2020-12-15] MEDS: Nitrofurantoin Monohyd/M-Cryst 100 MG CAP PO SCH ×2 (09:44→21:40)
[2020-12-15] MEDS: Furosemide 40 MG TAB PO SCH (09:44)
[2020-12-15] MEDS: Apixaban 5 MG TAB PO SCH ×2 (09:44→21:40)
[2020-12-15] MEDS: Polyethylene Glycol 3350 17 GM Packet PO SCH (09:45)
[2020-12-15] MEDS: Lisinopril 10 MG TAB PO SCH (09:45)
[2020-12-15] MEDS: Senokot S 8.6-50 MG TAB PO SCH ×2 (09:45→21:40)
[2020-12-15] MEDS: Amiodarone 200 MG TAB PO SCH ×3 (09:45→21:40)
[2020-12-15] MEDS: cycloSPORINE 0.05% Ophthalmic Droperette EA EYE SCH ×2 (09:45→21:40)
[2020-12-15] MEDS: Melatonin 3 MG TAB PO PRN (21:40)
[2020-12-16] MEDS: Acetaminophen 500 MG TAB PO SCH ×4 (00:25→17:55)
[2020-12-16 06:54] LABS: Digoxin 2.56 ng/mL (0.8-2.0)
[2020-12-16] MEDS: Digoxin 0.125 MG TAB PO SCH (07:15)
[2020-12-16 07:35] LABS: #Eosinphils 0.4 thou/uL (0.0-0.7); #Lymphocytes 1.3 thou/uL (1.20-3.40); #Monocytes 1.2 thou/uL (0.11-0.59); #Neutrophils 10.8 thou/uL (1.40-6.50); %Basophils 0.2 % (0.0-1.0); %Eosinophils 2.9 % (0.0-10.0); %Lymphocytes 9.5 % (21.0-51.0); %Monocytes 8.8 % (0.0-10.0); %Neutrophils 78.7 % (42.0-75.0); Hemoglobin 9.9 g/dL (12.0-16.0); Mean Corpuscular HGB CONC 33.2 g/dL (32.0-36.0); Mean Corpuscular Hemoglobin 31.7 pg (27.0-31.0); Mean Corpuscular Volume 95.5 fL (78.0-98.0); Mean Platelet Volume 7.3 fL (7.4-10.4); Platelet Count 379 thou/uL (130-400); RBC Distribution Width 14.8 % (11.5-14.5); Red Blood Cell (RBC) Count 3.12 mill/uL (4.20-5.40); White Blood Cell (WBC) Count 13.8 thou/uL (4.8-10.8)
[2020-12-16] MEDS: Metoprolol Tartrate 25 MG TAB PO SCH ×2 (08:57→20:55)
[2020-12-16] MEDS: Apixaban 5 MG TAB PO SCH ×2 (08:57→20:55)
[2020-12-16] MEDS: Potassium Chloride 10 MEQ TAB PO SCH (08:58)
[2020-12-16] MEDS: Amiodarone 200 MG TAB PO SCH ×4 (08:58→20:55)
[2020-12-16] MEDS: Amlodipine 5 MG TAB PO SCH ×2 (08:59)
[2020-12-16] MEDS: Nitrofurantoin Monohyd/M-Cryst 100 MG CAP PO SCH ×2 (09:00→20:55)
[2020-12-16] MEDS: Furosemide 40 MG TAB PO SCH (09:00)
[2020-12-16] MEDS: Lisinopril 10 MG TAB PO SCH (09:00)
[2020-12-16] MEDS: Senokot S 8.6-50 MG TAB PO SCH ×2 (09:11→20:56)
[2020-12-16] MEDS: cycloSPORINE 0.05% Ophthalmic Droperette EA EYE SCH ×2 (09:11→20:56)
[2020-12-16] MEDS: Polyethylene Glycol 3350 17 GM Packet PO SCH (09:11)
[2020-12-17] MEDS: Acetaminophen 500 MG TAB PO SCH ×4 (00:33→19:59)
[2020-12-17 05:48] LABS: Digoxin 2.29 ng/mL (0.8-2.0)
[2020-12-17] MEDS: Furosemide 40 MG TAB PO SCH (10:23)
[2020-12-17] MEDS: Potassium Chloride 10 MEQ TAB PO SCH (10:23)
[2020-12-17] MEDS: Amiodarone 200 MG TAB PO SCH ×3 (10:23→19:59)
[2020-12-17] MEDS: Apixaban 5 MG TAB PO SCH ×2 (10:24→19:59)
[2020-12-17] MEDS: Senokot S 8.6-50 MG TAB PO SCH ×2 (10:24→20:00)
[2020-12-17] MEDS: Metoprolol Tartrate 25 MG TAB PO SCH ×2 (10:24→19:59)
[2020-12-17] MEDS: Nitrofurantoin Monohyd/M-Cryst 100 MG CAP PO SCH ×2 (10:24→20:00)
[2020-12-17] MEDS: Lisinopril 10 MG TAB PO SCH (10:25)
[2020-12-17] MEDS: Amlodipine 5 MG TAB PO SCH (10:25)
[2020-12-17] MEDS: Polyethylene Glycol 3350 17 GM Packet PO SCH (10:26)
[2020-12-17] MEDS: cycloSPORINE 0.05% Ophthalmic Droperette EA EYE SCH ×2 (10:36→20:51)
[2020-12-18] MEDS: Acetaminophen 500 MG TAB PO SCH ×2 (00:13→08:37)
[2020-12-18] MEDS: Metoprolol Tartrate 25 MG TAB PO SCH (08:36)
[2020-12-18] MEDS: Apixaban 5 MG TAB PO SCH (08:37)
[2020-12-18] MEDS: Potassium Chloride 10 MEQ TAB PO SCH (08:37)
[2020-12-18] MEDS: Amiodarone 200 MG TAB PO SCH (08:37)
[2020-12-18] MEDS: Lisinopril 10 MG TAB PO SCH (08:37)
[2020-12-18] MEDS: Amlodipine 5 MG TAB PO SCH (08:37)
[2020-12-18] MEDS: Furosemide 40 MG TAB PO SCH (08:37)
[2020-12-18] MEDS: Polyethylene Glycol 3350 17 GM Packet PO SCH (08:38)
[2020-12-18] MEDS: Senokot S 8.6-50 MG TAB PO SCH (08:38)
[2020-12-18] MEDS: cycloSPORINE 0.05% Ophthalmic Droperette EA EYE SCH (09:46)
[2020-12-18 10:51] LABS: #Eosinphils 0.6 thou/uL (0.0-0.7); #Lymphocytes 1.2 thou/uL (1.20-3.40); #Monocytes 0.9 thou/uL (0.11-0.59); #Neutrophils 7.2 thou/uL (1.40-6.50); %Basophils 0.2 % (0.0-1.0); %Eosinophils 5.9 % (0.0-10.0); %Lymphocytes 11.9 % (21.0-51.0); %Monocytes 8.8 % (0.0-10.0); %Neutrophils 73.1 % (42.0-75.0); Hemoglobin 9.1 g/dL (12.0-16.0); Mean Corpuscular HGB CONC 33.1 g/dL (32.0-36.0); Mean Corpuscular Hemoglobin 31.3 pg (27.0-31.0); Mean Corpuscular Volume 94.6 fL (78.0-98.0); Mean Platelet Volume 6.8 fL (7.4-10.4); Platelet Count 438 thou/uL (130-400); RBC Distribution Width 14.7 % (11.5-14.5); Red Blood Cell (RBC) Count 2.89 mill/uL (4.20-5.40); White Blood Cell (WBC) Count 9.8 thou/uL (4.8-10.8)
[2020-12-18 12:10] VITALS: BP 104/52; TEMP 97.7
== END 2020-12-18 13:30 | DRG 521 ==
LOC: ERS 09:34 → SURG B 12:37 → 2NO 12-11 14:38
PROVIDERS: ADMIT Surgery; ATTEND Surgery
PROC: 0SRR01A Replacement of Right Hip Joint, Femoral Surface with Metal Synthetic Substitute, Uncemented, Open Approach (ICD-10-PCS; principal; 2020-12-07)
PROC: 30233N1 Transfusion of Nonautologous Red Blood Cells into Peripheral Vein, Percutaneous Approach (ICD-10-PCS; 2020-12-09)
PROC: 0DH67UZ Insertion of Feeding Device into Stomach, Via Natural or Artificial Opening (ICD-10-PCS; 2020-12-11)
PROC: 3E0G76Z Introduction of Nutritional Substance into Upper GI, Via Natural or Artificial Opening (ICD-10-PCS; 2020-12-11)
DX: S72.001A Fracture of unspecified part of neck of right femur, initial encounter for closed fracture (principal); I50.33 Acute on chronic diastolic (congestive) heart failure; S42.201A Unspecified fracture of upper end of right humerus, initial encounter for closed fracture; E87.1 Hypo-osmolality and hyponatremia; I48.92 Unspecified atrial flutter; N17.9 Acute kidney failure, unspecified; I48.20 Chronic atrial fibrillation, unspecified; D62 Acute posthemorrhagic anemia; Z20.822 Contact with and (suspected) exposure to COVID-19; I11.0 Hypertensive heart disease with heart failure; W01.0XXA Fall on same level from slipping, tripping and stumbling without subsequent striking against object, initial encounter; M79.7 Fibromyalgia; M54.9 Dorsalgia, unspecified; S09.90XA Unspecified injury of head, initial encounter; M35.00 Sjogren syndrome, unspecified; E86.0 Dehydration; G89.4 Chronic pain syndrome; Z88.1 Allergy status to other antibiotic agents; Z88.2 Allergy status to sulfonamides; Z88.0 Allergy status to penicillin; Z87.440 Personal history of urinary (tract) infections; Z88.6 Allergy status to analgesic agent; Z90.710 Acquired absence of both cervix and uterus; Z90.5 Acquired absence of kidney; Z79.01 Long term (current) use of anticoagulants; Z79.899 Other long term (current) drug therapy; Z90.89 Acquired absence of other organs; Z98.49 Cataract extraction status, unspecified eye; Z98.1 Arthrodesis status
CPT/HCPCS: 36415; 36430; 70450; 71045; 72125; 72170; 74018; 74230; 80048; 80053; 80162; 81001; 82533; 83735; 83880; 84100; 84484; 85007; 85025; 85027; 85610; 85730; 86850; 86870; 86880; 86900; 86901; 86922; 87077; 87086; 87186; 90471; 90715; 93005; 93010; 93306; 96374; 96375; G0390; J0282; J1100; J1160; J1720; J1885; J1940; J2270; J2405; J2704; J2765; J2800; J3010; J3490; J7050; J7070; P9016; P9045; S0028; U0002; U0003; U0005

== ENCOUNTER 2021-01-07 10:55 | Outpatient (CLI) | payer MEDICARE, OTHER | END 2021-01-07 10:56 | disposition home or self-care (01) | LOC: RAD 10:55 | PROVIDERS: ATTEND Family Medicine | DX: S42.291D Other displaced fracture of upper end of right humerus, subsequent encounter for fracture with routine healing (principal) ==

== ENCOUNTER 2021-07-15 10:05 | Emergency (ER) | payer MEDICARE, OTHER ==
[2021-07-15] MEDS ORDERED: Morphine 4 MG/ML VIAL ONE (10:52)
[2021-07-15 12:20] LABS: #Eosinphils 0.1 thou/uL (0.0-0.7); #Lymphocytes 1.1 thou/uL (1.20-3.40); #Monocytes 0.7 thou/uL (0.11-0.59); #Neutrophils 4.7 thou/uL (1.40-6.50); %Basophils 0.5 % (0.0-1.0); %Lymphocytes 16.5 % (21.0-51.0); %Monocytes 10.4 % (0.0-10.0); %Neutrophils 70.7 % (42.0-75.0); Hemoglobin 11.7 g/dL (12.0-16.0); Mean Corpuscular HGB CONC 31.5 g/dL (32.0-36.0); Mean Corpuscular Hemoglobin 31.4 pg (27.0-31.0); Mean Corpuscular Volume 99.9 fL (78.0-98.0); Mean Platelet Volume 7.1 fL (7.4-10.4); Platelet Count 210 thou/uL (130-400); Red Blood Cell (RBC) Count 3.72 mill/uL (4.20-5.40); White Blood Cell (WBC) Count 6.7 thou/uL (4.8-10.8)
[2021-07-15 12:46] LABS: ALT (SGPT) 15 U/L (8-55); AST (SGOT) 16 U/L (5-34); Albumin 3.5 g/dL (3.4-4.8); Alkaline Phosphatase 67 U/L (40-110); Anion Gap 13 mmol/L (10-20); BUN (Urea Nitrogen) 10 mg/dL (9.8-20.1); Calc. Creatinine Clearance 0 mL/min (70-130); Calcium 8.7 mg/dL (7.8-10.44); Carbon Dioxide 22 mmol/L (23-31); Chloride 100 mmol/L (98-107); Globulin 3.5 g/dL (2.4-3.5); Glucose 100 mg/dL (83-110); Sodium 131 mmol/L (136-145)
[2021-07-15 13:00] LABS: Bilirubin, Total 0.6 mg/dL (0.2-1.2)
[2021-07-15 13:19] LABS: Bacteria/HPF 2+ HPF (None Seen); Bilirubin Negative (Negative); Blood, Urine Negative (Negative); Clarity Turbid (Clear); Glucose, Urine (Dipstick) Normal (Negative); Ketone, Urine Negative (Negative); Leukocyte 250 Leu/uL (Negative); Nitrite 1+ (Negative); Protein, Urine (Dipstick) Negative (Neg-Trace); RBC/HPF 0-3 HPF (0-3); Specific Gravity, Urine 1.011 (1.002-1.036); Squamous Epithelial None Seen HPF (0-3); Urobilinogen Normal mg/dL (Less than 2)
== END 2021-07-15 17:36 ==
LOC: ERS 10:05
DX: M25.551 Pain in right hip (principal); N39.0 Urinary tract infection, site not specified; R26.2 Difficulty in walking, not elsewhere classified; I10 Essential (primary) hypertension
CPT/HCPCS: 36415; 72100; 72170; 80053; 81003; 81015; 85025; 87077; 87086; 87186; 96372; J2270

== ENCOUNTER 2023-04-15 10:26 | Inpatient (IN) | payer MEDICARE ==
[2023-04-15] MEDS ORDERED: Azithromycin 500 MG VIAL ONE (11:23)
[2023-04-15 11:30] LABS: #Eosinphils 0.2 thou/uL (0.0-0.7); #Monocytes 1.7 thou/uL (0.11-0.59); #Neutrophils 8.3 thou/uL (1.40-6.50); %Basophils 0.3 % (0.0-1.0); %Eosinophils 1.5 % (0.0-10.0); %Lymphocytes 10.6 % (21.0-51.0); %Monocytes 14.9 % (0.0-10.0); %Neutrophils 72.4 % (42.0-75.0); Hematocrit 33.3 % (36.0-47.0); Hemoglobin 11.2 g/dL (12.0-16.0); Mean Corpuscular HGB CONC 33.6 g/dL (32.0-36.0); Mean Corpuscular Hemoglobin 31.5 pg (27.0-31.0); Mean Corpuscular Volume 93.8 fl (78.0-98.0); Mean Platelet Volume 9.3 fL (7.4-10.4); Platelet Count 161 10x3/uL (130-400); RBC Distribution Width 14.1 % (11.5-14.5); Red Blood Cell (RBC) Count 3.55 mill/uL (4.20-5.40); White Blood Cell (WBC) Count 11.5 10x3/uL (4.8-10.8)
[2023-04-15 11:45] LABS: INR-International Normal Ratio 1.5; Prothrombin Time 18.1 sec (12.0-14.7)
[2023-04-15 11:46] LABS: PTT 40.3 sec (22.9-36.1)
[2023-04-15 11:50] LABS: Influenza A by NAA Not Detected (NotDetected); Influenza B by NAA Not Detected (NotDetected); SARS-CoV-2 NAA Rapid Test Not Detected (NotDetected)
[2023-04-15 11:56] LABS: ALT (SGPT) 11 U/L (8-55); AST (SGOT) 21 U/L (5-34); Albumin 3.8 g/dL (3.4-4.8); Alkaline Phosphatase 67 U/L (40-110); Anion Gap 13 mmol/L (10-20); BUN (Urea Nitrogen) 16 mg/dL (9.8-20.1); Bilirubin, Total 1.1 mg/dL (0.2-1.2); Calc. Creatinine Clearance 0 mL/min (70-130); Calcium 8.7 mg/dL (7.8-10.44); Carbon Dioxide 25 mmol/L (23-31); Chloride 95 mmol/L (98-107); Estimated GFR 61; Globulin 3.9 g/dL (2.4-3.5); Glucose 125 mg/dL (83-110); Potassium 4.2 mmol/L (3.5-5.1); Protein, Total 7.7 g/dL (5.8-8.1); Sodium 129 mmol/L (136-145)
[2023-04-15] MEDS ORDERED: Acetaminophen 325 MG TAB ONE (16:50)
[2023-04-15] MEDS ORDERED: Ondansetron ODT 4 MG TAB PO PRN (17:54)
[2023-04-15] MEDS ORDERED: Bisacodyl 5 MG TAB PO PRN (17:54)
[2023-04-15] MEDS ORDERED: Ondansetron PF 4 MG/2 ML Vial IVP PRN (17:54)
[2023-04-15] MEDS ORDERED: Acetaminophen 650 MG Suppository PR PRN (17:54)
[2023-04-15] MEDS: cefTRIAXone\\ROCEPHIN 1 GM in Sodium Chloride 0.9% 100 ML IVPB SCH (19:48)
[2023-04-15] MEDS: Apixaban 5 MG TAB PO SCH (19:55)
[2023-04-15] MEDS: Donepezil HCl 5 MG TAB PO SCH (20:09)
[2023-04-15] MEDS: Acetaminophen 325 MG TAB PO PRN (20:10)
[2023-04-15] MEDS: Pilocarpine 5 MG TAB PO SCH (20:15)
[2023-04-15] MEDS: Latanoprost 0.005% Ophth Soln 2.5 ml Bottle EA EYE SCH (20:15)
[2023-04-15] MEDS: Azithromycin 500 MG in Sodium Chloride 0.9% 250 ML 250 ML IVPB SCH (20:16)
[2023-04-16 05:54] LABS: #Eosinphils 0.4 thou/uL (0.0-0.7); #Monocytes 1.7 thou/uL (0.11-0.59); #Neutrophils 5.6 thou/uL (1.40-6.50); %Basophils 0.3 % (0.0-1.0); %Lymphocytes 14.7 % (21.0-51.0); %Monocytes 18.6 % (0.0-10.0); %Neutrophils 62.1 % (42.0-75.0); Hematocrit 31.2 % (36.0-47.0); Hemoglobin 10.1 g/dL (12.0-16.0); Mean Corpuscular HGB CONC 32.4 g/dL (32.0-36.0); Mean Corpuscular Hemoglobin 31.2 pg (27.0-31.0); Mean Corpuscular Volume 96.3 fl (78.0-98.0); Mean Platelet Volume 10.3 fL (7.4-10.4); Platelet Count 144 10x3/uL (130-400); RBC Distribution Width 14.3 % (11.5-14.5); Red Blood Cell (RBC) Count 3.24 mill/uL (4.20-5.40); White Blood Cell (WBC) Count 9.1 10x3/uL (4.8-10.8)
[2023-04-16 06:07] LABS: Anion Gap 12 mmol/L (10-20); BUN (Urea Nitrogen) 15 mg/dL (9.8-20.1); Calc. Creatinine Clearance 81 mL/min (70-130); Calcium 8.3 mg/dL (7.8-10.44); Carbon Dioxide 24 mmol/L (23-31); Chloride 99 mmol/L (98-107); Estimated GFR 67; Glucose 100 mg/dL (83-110); Potassium 3.9 mmol/L (3.5-5.1); Sodium 131 mmol/L (136-145)
[2023-04-16] MEDS: Furosemide 40 MG TAB PO SCH (08:06)
[2023-04-16] MEDS: Azithromycin 500 MG in Sodium Chloride 0.9% 250 ML 250 ML IVPB SCH (11:45)
[2023-04-17 06:07] LABS: #Eosinphils 0.1 thou/uL (0.0-0.7); #Monocytes 1.8 thou/uL (0.11-0.59); %Basophils 0.4 % (0.0-1.0); %Eosinophils 1.2 % (0.0-10.0); %Lymphocytes 11.4 % (21.0-51.0); %Monocytes 15.7 % (0.0-10.0); %Neutrophils 70.9 % (42.0-75.0); Hematocrit 29.7 % (36.0-47.0); Hemoglobin 9.9 g/dL (12.0-16.0); Mean Corpuscular HGB CONC 33.3 g/dL (32.0-36.0); Mean Corpuscular Hemoglobin 31.8 pg (27.0-31.0); Mean Corpuscular Volume 95.5 fl (78.0-98.0); Mean Platelet Volume 9.8 fL (7.4-10.4); Platelet Count 138 10x3/uL (130-400); RBC Distribution Width 14.2 % (11.5-14.5); Red Blood Cell (RBC) Count 3.11 mill/uL (4.20-5.40); White Blood Cell (WBC) Count 11.2 10x3/uL (4.8-10.8)
[2023-04-17 06:35] LABS: Anion Gap 10 mmol/L (10-20); BUN (Urea Nitrogen) 14 mg/dL (9.8-20.1); Calc. Creatinine Clearance 90 mL/min (70-130); Calcium 8.4 mg/dL (7.8-10.44); Carbon Dioxide 25 mmol/L (23-31); Chloride 99 mmol/L (98-107); Estimated GFR 75; Glucose 122 mg/dL (83-110); Potassium 3.9 mmol/L (3.5-5.1); Sodium 130 mmol/L (136-145)
[2023-04-18 06:54] LABS: #Eosinphils 0.1 thou/uL (0.0-0.7); #Monocytes 1.7 thou/uL (0.11-0.59); #Neutrophils 7.4 thou/uL (1.40-6.50); %Basophils 0.4 % (0.0-1.0); %Eosinophils 1.1 % (0.0-10.0); %Lymphocytes 10.7 % (21.0-51.0); %Monocytes 16.3 % (0.0-10.0); %Neutrophils 71.1 % (42.0-75.0); Hematocrit 32.3 % (36.0-47.0); Hemoglobin 10.7 g/dL (12.0-16.0); Mean Corpuscular HGB CONC 33.1 g/dL (32.0-36.0); Mean Corpuscular Hemoglobin 31.4 pg (27.0-31.0); Mean Corpuscular Volume 94.7 fl (78.0-98.0); Mean Platelet Volume 10.4 fL (7.4-10.4); Platelet Count 127 10x3/uL (130-400); RBC Distribution Width 14.2 % (11.5-14.5); Red Blood Cell (RBC) Count 3.41 mill/uL (4.20-5.40); White Blood Cell (WBC) Count 10.4 10x3/uL (4.8-10.8)
[2023-04-18 07:15] LABS: Anion Gap 13 mmol/L (10-20); BUN (Urea Nitrogen) 13 mg/dL (9.8-20.1); Calc. Creatinine Clearance 104 mL/min (70-130); Calcium 8.5 mg/dL (7.8-10.44); Carbon Dioxide 22 mmol/L (23-31); Chloride 98 mmol/L (98-107); Estimated GFR 86; Glucose 128 mg/dL (83-110); Potassium 4.3 mmol/L (3.5-5.1); Sodium 129 mmol/L (136-145)
[2023-04-18] MEDS ORDERED: dilTIAZem 125 MG in Sodium Chloride 0.9% 100 ML IVPB SCH (09:15)
[2023-04-18] MEDS: dilTIAZem 25 MG/5 ML VIAL SLOW IVP SCH (09:20)
[2023-04-18] MEDS: dilTIAZem 125 MG, Admixture Fee 1 EACH in Sodium Chloride 0.9% 100 ML IVPB SCH (09:30)
[2023-04-18] MEDS: Amiodarone 450 MG in Dextrose 5% in Water 250 ML IVPB SCH (22:04)
[2023-04-19 06:38] LABS: Hematocrit 32.3 % (36.0-47.0); Hemoglobin 10.7 g/dL (12.0-16.0); Manual Diff?? YES; Mean Corpuscular HGB CONC 33.1 g/dL (32.0-36.0); Mean Corpuscular Volume 96.7 fl (78.0-98.0); Platelet Count 125 10x3/uL (130-400); RBC Distribution Width 14.3 % (11.5-14.5); Red Blood Cell (RBC) Count 3.34 mill/uL (4.20-5.40); White Blood Cell (WBC) Count 14.9 10x3/uL (4.8-10.8)
[2023-04-19 06:40] LABS: Delete Auto Diff?? YES
[2023-04-19 06:59] LABS: Band 4 % (5-11); CellaVision Operator ID LAB.CLH1; Hypochromia SLIGHT = 6-15 cells HPF (0-5); Lymphocytes 6 % (21-51); Monocytes 16 % (0-10); Neutrophil 73 % (42-75); Platelet Adequacy Comment Platelets Normal; Polychromasia SLIGHT = 2-3 cells HPF (0-2); Total Cell Count 100
[2023-04-19 07:06] LABS: Anion Gap 10 mmol/L (10-20); BUN (Urea Nitrogen) 17 mg/dL (9.8-20.1); Calc. Creatinine Clearance 91 mL/min (70-130); Calcium 8.7 mg/dL (7.8-10.44); Carbon Dioxide 22 mmol/L (23-31); Chloride 96 mmol/L (98-107); Estimated GFR 76; Glucose 141 mg/dL (83-110); Potassium 4.3 mmol/L (3.5-5.1); Sodium 124 mmol/L (136-145)
[2023-04-20] MEDS: dilTIAZem 25 MG/5 ML VIAL SLOW IVP PRN (04:56)
[2023-04-20] MEDS: Ipratropium/Albuterol 3 ML NEB NEB PRN (05:28)
[2023-04-20 06:38] LABS: Anion Gap 15 mmol/L (10-20); BUN (Urea Nitrogen) 25 mg/dL (9.8-20.1); Calc. Creatinine Clearance 79 mL/min (70-130); Calcium 8.8 mg/dL (7.8-10.44); Carbon Dioxide 16 mmol/L (23-31); Chloride 99 mmol/L (98-107); Estimated GFR 65; Glucose 111 mg/dL (83-110); Potassium 4.6 mmol/L (3.5-5.1); Sodium 125 mmol/L (136-145)
[2023-04-20 06:40] LABS: #Basophils 0.1 thou/uL (0.0-0.2); #Eosinphils 0.1 thou/uL (0.0-0.7); #Monocytes 2.4 thou/uL (0.11-0.59); #Neutrophils 9.7 thou/uL (1.40-6.50); %Basophils 0.8 % (0.0-1.0); %Eosinophils 0.6 % (0.0-10.0); %Lymphocytes 10.7 % (21.0-51.0); %Monocytes 17.3 % (0.0-10.0); %Neutrophils 69.3 % (42.0-75.0); Hematocrit 38.5 % (36.0-47.0); Hemoglobin 11.6 g/dL (12.0-16.0); Mean Corpuscular HGB CONC 30.1 g/dL (32.0-36.0); Mean Corpuscular Hemoglobin 32.2 pg (27.0-31.0); Mean Platelet Volume 12.9 fL (7.4-10.4); RBC Distribution Width 14.6 % (11.5-14.5)
[2023-04-20 06:41] LABS: Platelet Count 59 10x3/uL (130-400)
[2023-04-20 06:42] LABS: Mean Corpuscular Volume 106.9 fl (78.0-98.0)
[2023-04-20] MEDS: Amlodipine 5 MG TAB PO SCH (08:19)
[2023-04-20] MEDS: Lisinopril 10 MG TAB PO SCH (08:20)
[2023-04-20] MEDS ORDERED: dilTIAZem 125 MG in Sodium Chloride 0.9% 100 ML IVPB SCH (09:30)
[2023-04-20] MEDS: dilTIAZem 125 MG, Admixture Fee 1 EACH in Sodium Chloride 0.9% 100 ML IVPB SCH (09:51)
[2023-04-20 15:34] LABS: Sodium, Urine Less than 20 mmol/L (Not Available)
[2023-04-20] MEDS: Doxycycline 100 MG CAP PO SCH (20:35)
[2023-04-21 05:17] LABS: #Basophils 0.1 thou/uL (0.0-0.2); #Eosinphils 0.1 thou/uL (0.0-0.7); #Monocytes 1.7 thou/uL (0.11-0.59); #Neutrophils 7.7 thou/uL (1.40-6.50); %Basophils 0.5 % (0.0-1.0); %Lymphocytes 9.2 % (21.0-51.0); %Monocytes 15.8 % (0.0-10.0); %Neutrophils 72.7 % (42.0-75.0); Hematocrit 31.3 % (36.0-47.0); Hemoglobin 10.1 g/dL (12.0-16.0); Mean Corpuscular HGB CONC 32.3 g/dL (32.0-36.0); Mean Corpuscular Hemoglobin 31.3 pg (27.0-31.0); Mean Platelet Volume 10.4 fL (7.4-10.4); Platelet Count 151 10x3/uL (130-400); RBC Distribution Width 14.2 % (11.5-14.5); Red Blood Cell (RBC) Count 3.23 mill/uL (4.20-5.40); White Blood Cell (WBC) Count 10.6 10x3/uL (4.8-10.8)
[2023-04-21 05:32] LABS: Mean Corpuscular Volume 96.9 fl (78.0-98.0)
[2023-04-21 05:40] LABS: Anion Gap 11 mmol/L (10-20); BUN (Urea Nitrogen) 33 mg/dL (9.8-20.1); Calc. Creatinine Clearance 84 mL/min (70-130); Calcium 8.6 mg/dL (7.8-10.44); Carbon Dioxide 26 mmol/L (23-31); Chloride 97 mmol/L (98-107); Estimated GFR 69; Glucose 116 mg/dL (83-110); Potassium 4.2 mmol/L (3.5-5.1); Sodium 130 mmol/L (136-145)
[2023-04-21] MEDS: Lisinopril 20 MG TAB PO SCH (08:36)
[2023-04-21] MEDS: Digoxin 0.5 MG/2 ML AMP SLOW IVP SCH (22:57)
[2023-04-22] MEDS: Artificial Tear Sol 15 ML BOT EA EYE PRN (05:51)
[2023-04-22 09:29] VITALS: BMI 37.5
[2023-04-22 10:09] LABS: #Basophils 0.1 thou/uL (0.0-0.2); #Eosinphils 0.1 thou/uL (0.0-0.7); #Neutrophils 5.4 thou/uL (1.40-6.50); %Basophils 0.8 % (0.0-1.0); %Eosinophils 1.7 % (0.0-10.0); %Lymphocytes 8.9 % (21.0-51.0); %Monocytes 13.9 % (0.0-10.0); %Neutrophils 73.7 % (42.0-75.0); Hematocrit 33.7 % (36.0-47.0); Hemoglobin 10.6 g/dL (12.0-16.0); Mean Corpuscular HGB CONC 31.5 g/dL (32.0-36.0); Mean Corpuscular Hemoglobin 30.5 pg (27.0-31.0); Mean Corpuscular Volume 97.1 fl (78.0-98.0); Mean Platelet Volume 10.4 fL (7.4-10.4); Platelet Count 114 10x3/uL (130-400); RBC Distribution Width 14.4 % (11.5-14.5); Red Blood Cell (RBC) Count 3.47 mill/uL (4.20-5.40); White Blood Cell (WBC) Count 7.3 10x3/uL (4.8-10.8)
[2023-04-22 10:55] LABS: Anion Gap 10 mmol/L (10-20); BUN (Urea Nitrogen) 28 mg/dL (9.8-20.1); Calc. Creatinine Clearance 89 mL/min (70-130); Calcium 8.5 mg/dL (7.8-10.44); Carbon Dioxide 25 mmol/L (23-31); Chloride 100 mmol/L (98-107); Estimated GFR 77; Glucose 136 mg/dL (83-110); Potassium 4.3 mmol/L (3.5-5.1); Sodium 131 mmol/L (136-145)
[2023-04-23 05:56] LABS: #Basophils 0.1 thou/uL (0.0-0.2); #Eosinphils 0.1 thou/uL (0.0-0.7); #Monocytes 1.4 thou/uL (0.11-0.59); #Neutrophils 7.1 thou/uL (1.40-6.50); %Basophils 0.8 % (0.0-1.0); %Eosinophils 1.3 % (0.0-10.0); %Lymphocytes 9.6 % (21.0-51.0); %Monocytes 14.7 % (0.0-10.0); %Neutrophils 72.8 % (42.0-75.0); Hematocrit 32.9 % (36.0-47.0); Hemoglobin 10.3 g/dL (12.0-16.0); Mean Corpuscular HGB CONC 31.3 g/dL (32.0-36.0); Mean Corpuscular Hemoglobin 30.7 pg (27.0-31.0); Mean Corpuscular Volume 98.2 fl (78.0-98.0); Mean Platelet Volume 10.3 fL (7.4-10.4); Platelet Count 172 10x3/uL (130-400); RBC Distribution Width 14.4 % (11.5-14.5); Red Blood Cell (RBC) Count 3.35 mill/uL (4.20-5.40); White Blood Cell (WBC) Count 9.7 10x3/uL (4.8-10.8)
[2023-04-23 06:23] LABS: Anion Gap 12 mmol/L (10-20); BUN (Urea Nitrogen) 23 mg/dL (9.8-20.1); Calc. Creatinine Clearance 94 mL/min (70-130); Calcium 8.7 mg/dL (7.8-10.44); Carbon Dioxide 25 mmol/L (23-31); Chloride 101 mmol/L (98-107); Estimated GFR 82; Glucose 124 mg/dL (83-110); Potassium 4.7 mmol/L (3.5-5.1); Sodium 133 mmol/L (136-145)
[2023-04-23] MEDS: Senokot S 8.6-50 MG TAB PO PRN (11:59)
[2023-04-23] MEDS: Digoxin 0.5 MG/2 ML AMP SLOW IVP SCH (22:26)
[2023-04-24 06:32] LABS: #Basophils 0.1 thou/uL (0.0-0.2); #Eosinphils 0.1 thou/uL (0.0-0.7); #Monocytes 1.4 thou/uL (0.11-0.59); #Neutrophils 8.7 thou/uL (1.40-6.50); %Basophils 0.5 % (0.0-1.0); %Eosinophils 1.1 % (0.0-10.0); %Lymphocytes 8.9 % (21.0-51.0); %Monocytes 12.6 % (0.0-10.0); %Neutrophils 76.1 % (42.0-75.0); Hematocrit 33.6 % (36.0-47.0); Hemoglobin 10.5 g/dL (12.0-16.0); Mean Corpuscular HGB CONC 31.3 g/dL (32.0-36.0); Mean Corpuscular Hemoglobin 30.8 pg (27.0-31.0); Mean Corpuscular Volume 98.5 fl (78.0-98.0); Mean Platelet Volume 10.1 fL (7.4-10.4); Platelet Count 157 10x3/uL (130-400); RBC Distribution Width 14.2 % (11.5-14.5); Red Blood Cell (RBC) Count 3.41 mill/uL (4.20-5.40); White Blood Cell (WBC) Count 11.4 10x3/uL (4.8-10.8)
[2023-04-24 07:02] LABS: Anion Gap 11 mmol/L (10-20); BUN (Urea Nitrogen) 22 mg/dL (9.8-20.1); Calc. Creatinine Clearance 89 mL/min (70-130); Calcium 8.9 mg/dL (7.8-10.44); Carbon Dioxide 29 mmol/L (23-31); Chloride 99 mmol/L (98-107); Estimated GFR 77; Glucose 121 mg/dL (83-110); Potassium 4.5 mmol/L (3.5-5.1); Sodium 134 mmol/L (136-145)
[2023-04-24] MEDS: cefTRIAXone\\ROCEPHIN 2 GM in Sodium Chloride 0.9% 100 ML IVPB SCH (10:10)
[2023-04-24] MEDS: Azithromycin 500 MG in Sodium Chloride 0.9% 250 ML 250 ML IVPB SCH (16:38)
[2023-04-25 06:02] LABS: #Eosinphils 0.1 thou/uL (0.0-0.7); #Monocytes 1.4 thou/uL (0.11-0.59); #Neutrophils 8.4 thou/uL (1.40-6.50); %Basophils 0.4 % (0.0-1.0); %Eosinophils 1.1 % (0.0-10.0); %Lymphocytes 8.9 % (21.0-51.0); %Monocytes 12.7 % (0.0-10.0); %Neutrophils 76.3 % (42.0-75.0); Hematocrit 33.8 % (36.0-47.0); Hemoglobin 10.8 g/dL (12.0-16.0); Mean Corpuscular Hemoglobin 30.6 pg (27.0-31.0); Mean Corpuscular Volume 95.8 fl (78.0-98.0); Mean Platelet Volume 10.2 fL (7.4-10.4); Platelet Count 168 10x3/uL (130-400); Red Blood Cell (RBC) Count 3.53 mill/uL (4.20-5.40)
[2023-04-25 06:28] LABS: Anion Gap 10 mmol/L (10-20); BUN (Urea Nitrogen) 19 mg/dL (9.8-20.1); Calc. Creatinine Clearance 94 mL/min (70-130); Calcium 8.8 mg/dL (7.8-10.44); Carbon Dioxide 27 mmol/L (23-31); Chloride 99 mmol/L (98-107); Estimated GFR 82; Glucose 116 mg/dL (83-110); Potassium 4.4 mmol/L (3.5-5.1); Sodium 132 mmol/L (136-145)
[2023-04-25] MEDS: Digoxin 0.125 MG TAB PO SCH (08:40)
[2023-04-26] MEDS: Cefdinir 300 MG CAP PO SCH (08:57)
[2023-04-26] MEDS: Doxycycline 100 MG CAP PO SCH (08:57)
[2023-04-26] MEDS: Amiodarone 200 MG TAB PO SCH ×2 (15:42→21:52)
[2023-04-26] MEDS: Metoprolol Tartrate 25 MG TAB PO SCH (22:06)
[2023-04-27] MEDS: Metoprolol Tartrate 25 MG TAB PO SCH (08:51)
[2023-04-28] MEDS: dilTIAZem CD 120 MG CAP PO SCH (08:58)
[2023-04-28 11:44] VITALS: BP 119/62; TEMP 98.9
== END 2023-04-28 12:48 | disposition hospice, home (50) | DRG 871 ==
LOC: ERS 10:26 → ERHOLD 16:03 → T4-A 18:49 → 2NO 04-18 09:10
PROVIDERS: ADMIT Internal Medicine; ATTEND Internal Medicine
DX: A41.9 Sepsis, unspecified organism (principal); J18.9 Pneumonia, unspecified organism; J96.01 Acute respiratory failure with hypoxia; E87.1 Hypo-osmolality and hyponatremia; I48.19 Other persistent atrial fibrillation; M35.00 Sjogren syndrome, unspecified; I10 Essential (primary) hypertension; F03.90 Unspecified dementia, unspecified severity, without behavioral disturbance, psychotic disturbance, mood disturbance, and anxiety; H40.9 Unspecified glaucoma; G89.4 Chronic pain syndrome; S80.12XA Contusion of left lower leg, initial encounter; E78.5 Hyperlipidemia, unspecified; Z96.641 Presence of right artificial hip joint; R53.1 Weakness; E86.1 Hypovolemia; D72.829 Elevated white blood cell count, unspecified; D64.9 Anemia, unspecified; Z66 Do not resuscitate; Z11.52 Encounter for screening for COVID-19; Z79.01 Long term (current) use of anticoagulants; Z93.6 Other artificial openings of urinary tract status; Z88.1 Allergy status to other antibiotic agents; Z88.2 Allergy status to sulfonamides; Z88.0 Allergy status to penicillin; Z88.8 Allergy status to other drugs, medicaments and biological substances; Z79.899 Other long term (current) drug therapy; Z98.890 Other specified postprocedural states; Z74.01 Bed confinement status; Z99.3 Dependence on wheelchair; Z90.710 Acquired absence of both cervix and uterus; Z90.5 Acquired absence of kidney
CPT/HCPCS: 36415; 36416; 70450; 71045; 80048; 80053; 82570; 83605; 83735; 83880; 84145; 84300; 84443; 85025; 85610; 85730; 86140; 87040; 93005; 93010; 93306; 94640; 94760; 96365; 97139; J0282; J0456; J0696; J1160; J3490; J7050; J7070; J7620